=== PATIENT | female | born 1985 | race American Indian/Alaskan Native ===

== ENCOUNTER 2018-03-15 09:52 | Emergency (ER) | payer MEDICAID ==
[2018-03-15 10:02] VITALS: BP 122/79
[2018-03-15] MEDS ORDERED: DUONEB *Not for PRN Use IH ONE (11:14)
[2018-03-15] MEDS ORDERED: DELTASONE PO ONE (11:14)
[2018-03-15] MEDS ORDERED: TESSALON PERLES PO ONE (11:14)
--- NOTE | 2018-03-15 11:20 | Emergency Department Report ---
Chief Complaint: Adult Asthma Stated Complaint: DIFFICULTY BREATHING Time Seen by Provider: 03/15/18 11:13 - HPI History of Present Illness: 32-year-old female presents to the emergency department with a complaint of 2 days of sore throat, and now waking up this morning with wheezing , mixed dry and productive cough, shortness of breath. She has a history of asthma but has not taken any medications prior to presentation. No recent travel or sick contacts at home. - ROS Review of Systems: Positive for wheezing, cough, sore throat, rhinorrhea Negative for chest pain, fever, abdominal pain, back pain. - Exam Vital Signs: Vital Signs 03/15/18 09:56 Temperature 99 F Pulse Rate 94 H Respiratory 18 Rate Blood Pressure 122/79 O2 Sat by Pulse 100 Oximetry Physical Exam: Patient does have moderate inspiratory and expiratory wheezing. There is a productive sounding cough heard during examination. Heart sounds are normal to auscultation. MSE screening note: Focused history and physical exam performed. Due to findings the following was ordered: She was given oral prednisone and a Tessalon Perle. She'll have a DuoNeb. She will have a 2 view chest x-ray and a rapid strep test done. ED Disposition for MSE Condition: Stable Referrals: PRIMARY CARE, [Primary Care Provider] - 3-5 Days
--- NOTE | 2018-03-15 11:49 | XRay Report ---
ROUTINE CHEST, TWO VIEWS: HISTORY: Wheezing. The trachea, heart, mediastinal contour, lung delaney and bony thorax are unremarkable. IMPRESSION: Unremarkable chest x-ray.
--- NOTE | 2018-03-15 12:44 | Emergency Department Report ---
- General Chief Complaint: Adult Asthma Stated Complaint: DIFFICULTY BREATHING Time Seen by Provider: 03/15/18 11:13 Source: patient Mode of arrival: Ambulatory Limitations: No Limitations - History of Present Illness Initial Comments: This is a 32-year-old female nontoxic, well nourished in appearance, no acute signs of distress presents to the ED with c/o of nonproductive cough, sore throat, rhinorrhea, nasal congestion x2 days. Patient also stated has wheezing that started today. Patient denies any sick contact. Patient denies any recent travels, long car, recent hospital stays. Patient denies any calf pain or calf tenderness. Patient denies any chest pain, short of breath, fever, chills, nausea, vomiting, hemoptysis, numbness, tingling, headache or stiff neck. Allergiec includes PCN and Flagyl. PMH includes DM and HTN. MD Complaint: cough, sore throat, rhinorrhea, nasal congestion, other (wheezing) -: days(s) (1) Severity: mild Severity scale (0 -10): 8 Quality: aching Consistency: constant Improves With: nothing Worsens With: nothing Associated Symptoms: rhinorrhea, nasal congestion, sore throat, cough. denies: fever, chills, myalgias, diaphoresis, headache, stiff neck, chest pain, shortness of breath, abdominal pain, nausea, vomiting, diarrhea, dysuria, rash, confusion, right sweats, weight loss, epistaxis, hoarseness, ear pain Treatments Prior to Arrival: none - Related Data Previous Rx's Medication Instructions Recorded Last Taken Type ALBUTEROL Inhaler [ProAir HFA 2 puff IH QID PRN #1 inhalation 03/15/18 Unknown Rx Inhaler] Azithromycin [Zithromax Z-YASMEEN] 250 mg PO DAILY #6 tablet 03/15/18 Unknown Rx Prednisone [predniSONE 10 mg 10 mg PO .TAPER #1 tab.ds.pk 03/15/18 Unknown Rx (6-Day Pack, 21 Tabs)] Allergies Allergy/AdvReac Type Severity Reaction Status Date / Time metronidazole [From Flagyl] Allergy Hives Verified 03/15/18 09:54 orange juice Allergy Swelling Verified 03/15/18 09:55 Penicillins Allergy Hives Verified 03/15/18 09:55 ED Review of Systems ROS: Stated complaint: DIFFICULTY BREATHING Other details as noted in HPI Constitutional: denies: chills, fever Eyes: denies: eye pain, eye discharge, vision change ENT: throat pain. denies: ear pain Respiratory: cough, wheezing. denies: shortness of breath Cardiovascular: denies: chest pain, palpitations Endocrine: no symptoms reported Gastrointestinal: denies: abdominal pain, nausea, diarrhea Genitourinary: denies: urgency, dysuria, discharge Musculoskeletal: denies: back pain, joint swelling, arthralgia Skin: denies: rash, lesions Neurological: denies: headache, weakness, paresthesias Psychiatric: denies: anxiety, depression Hematological/Lymphatic: denies: easy bleeding, easy bruising ED Past Medical Hx - Past Medical History Previous Medical History?: Yes Hx Asthma: Yes - Surgical History Past Surgical History?: No - Social History Smoking Status: Current Every Day Smoker Substance Use Type: None - Medications Home Medications: Home Medications Medication Instructions Recorded Confirmed Last Taken Type ALBUTEROL Inhaler [ProAir HFA 2 puff IH QID PRN #1 inhalation 03/15/18 Unknown Rx Inhaler] Azithromycin [Zithromax Z-YASMEEN] 250 mg PO DAILY #6 tablet 03/15/18 Unknown Rx Prednisone [predniSONE 10 mg 10 mg PO .TAPER #1 tab.ds.pk 03/15/18 Unknown Rx (6-Day Pack, 21 Tabs)] ED Physical Exam - General Limitations: No Limitations General appearance: alert, in no apparent distress - Head Head exam: Present: atraumatic, normocephalic - Eye Eye exam: Present: normal appearance Pupils: Present: normal accommodation - ENT ENT exam: Present: mucous membranes moist, TM's normal bilaterally, normal external ear exam - Expanded ENT Exam Expanded Ear exam: Present: normal external inspection Mouth exam: Present: normal external inspection, tongue normal. Absent: drooling, trismus, muffled voice, tongue elevation, laceration Teeth exam: Present: normal inspection Throat exam: Positive: tonsillar erythema, tonsillomegaly (2+), other (uvula midline. No abscess or swelling noted. ). Negative: tonsillar exudate, R peritonsillar mass, L peritonsillar mass - Neck Neck exam: Present: normal inspection, full ROM, lymphadenopathy (bilateral tonsillar). Absent: tenderness, meningismus - Respiratory Respiratory exam: Present: normal lung sounds bilaterally, wheezes (bilateral upper and lower lobes). Absent: respiratory distress, rales, rhonchi, stridor, chest wall tenderness, accessory muscle use, decreased breath sounds, prolonged expiratory - Cardiovascular Cardiovascular Exam: Present: regular rate, normal rhythm, normal heart sounds. Absent: irregular rhythm, systolic murmur, diastolic murmur, rubs, gallop - GI/Abdominal GI/Abdominal exam: Present: soft, normal bowel sounds - Extremities Exam Extremities exam: Present: normal inspection, full ROM, normal capillary refill - Back Exam Back exam: Present: normal inspection, full ROM - Neurological Exam Neurological exam: Present: alert, oriented X3, normal gait - Psychiatric Psychiatric exam: Present: normal affect, normal mood - Skin Skin exam: Present: warm, dry, intact, normal color. Absent: rash ED Course Vital Signs 03/15/18 09:56 Temperature 99 F Pulse Rate 94 H Respiratory 18 Rate Blood Pressure 122/79 O2 Sat by Pulse 100 Oximetry - Reevaluation(s) Reevaluation #1: 03/15/18 12:43 Patient is speaking in full sentences with no signs of distress noted. - Consultations Consultation #1: 03/15/18 12:46 Patient has been consulted with Dr. Torrez about patient history, physical exam, and xray results and examined and screened patient and agrees to ED plan of care and discharge plan of care. ED Medical Decision Making - Medical Decision Making This is a 32-year-old female that presents with asthma exacerbation, URI, and tonsillitis. Patient is stable and was examined by nm and Dr. Torrez. Chest x- ray has been obtained and dictated by the radiologist within normal limits. Patient is notified of the x-ray report with no questions noted by the patient. Patient did receive DuoNeb and steroids in the ED which patient the symptoms has resolved and subsided. Posttreatment and there is no wheezing upon auscultation. Patient is discharged with albuterol and prednisone and zpak. Patient was referred to Follow-up with a primary care doctor in 3-5 days or if symptoms worsen and continue return to emergency room as soon as possible. At time of discharge, the patient does not seem toxic or ill in appearance. No acute signs of distress noted. Patient agrees to discharge treatment plan of care. No further questions noted by the patient. This chart is dictated with using Dragon Dictation Program Critical care attestation.: If time is entered above; I have spent that time in minutes in the direct care of this critically ill patient, excluding procedure time. ED Disposition Clinical Impression: Tonsillitis Upper respiratory infection Qualifiers: URI type: unspecified URI Qualified Code(s): J06.9 - Acute upper respiratory infection, unspecified Asthma exacerbation Qualifiers: Asthma severity: mild Asthma persistence: intermittent Qualified Code(s): J45.21 - Mild intermittent asthma with (acute) exacerbation Disposition: TO HOME OR SELFCARE Is pt being admited?: No Does the pt Need Aspirin: No Condition: Stable Instructions: Asthma (ED), Tonsillitis (ED), Azithromycin (By mouth), Prednisone (By mouth), Albuterol (By breathing) Additional Instructions: Follow-up with a primary care doctor in 3-5 days or if symptoms worsen and continue return to emergency room as soon as possible. Prescriptions: ALBUTEROL Inhaler [ProAir HFA Inhaler] 2 puff IH QID PRN #1 inhalation PRN Reason: Shortness Of Breath Azithromycin [Zithromax Z-YASMEEN] 250 mg PO DAILY #6 tablet Prednisone [predniSONE 10 mg (6-Day Pack, 21 Tabs)] 10 mg PO .TAPER #1 tab.ds.pk Referrals: PRIMARY CARE, [Primary Care Provider] - 3-5 Days HECTOR RÍOS MD [Staff Physician] - 3-5 Days [facility] [Outside] - 3-5 Days [facility] [Outside] - 3-5 Days Forms: Work/School Release Form(ED)
== END 2018-03-15 13:03 | disposition home or self-care (01) ==
LOC: ED 09:52
DX: J03.90 Acute tonsillitis, unspecified (principal); J06.9 Acute upper respiratory infection, unspecified; J45.21 Mild intermittent asthma with (acute) exacerbation; E11.9 Type 2 diabetes mellitus without complications; I10 Essential (primary) hypertension; F17.200 Nicotine dependence, unspecified, uncomplicated; Z88.0 Allergy status to penicillin; Z91.018 Allergy to other foods
CPT/HCPCS: 71046; 87116; 87430; 94640; 99283; J7512

== ENCOUNTER 2018-06-03 09:20 | Emergency (ER) | payer MEDICAID ==
[2018-06-03] MEDS ORDERED: TESSALON PERLES PO ONE (09:46)
[2018-06-03] MEDS ORDERED: ATROVENT IH ONE (09:46)
[2018-06-03] MEDS ORDERED: PROVENTIL IH ONE (09:46)
[2018-06-03] MEDS ORDERED: DELTASONE PO ONE (09:46)
--- NOTE | 2018-06-03 09:50 | Emergency Department Report ---
ED Shortness of Breath HPI - General Chief Complaint: Dyspnea/Respdistress Stated Complaint: WHEEZING Time Seen by Provider: 06/03/18 09:43 Source: patient Mode of arrival: Ambulatory Limitations: No Limitations - History of Present Illness Initial Comments: 32-year-old female with a past medical history of asthma without previous intubations presents to the hospital complaining of cough productive of clear sputum, sore throat, and wheezing. Symptoms started 3 days ago and have gradually worsened. Patient woke up this morning with chest tightness rated as 6/10 in intensity with associated wheezing that improved with home nebulizer treatment of albuterol and Atrovent. No fever reported by patient complains of green nasal discharge and drainage. - Related Data Previous Rx's Medication Instructions Recorded Last Taken Type ALBUTEROL Inhaler [ProAir HFA 2 puff IH QID PRN #1 inhalation 03/15/18 Unknown Rx Inhaler] Azithromycin [Zithromax Z-YASMEEN] 250 mg PO DAILY #6 tablet 03/15/18 Unknown Rx Azithromycin [Zithromax Z-YASMEEN] 1 dose PO DAILY 5 Days tab 06/03/18 Unknown Rx Benzonatate [Tessalon Perles] 100 mg PO Q8HR PRN #30 capsule 06/03/18 Unknown Rx Prednisone [predniSONE 10 mg 10 mg PO .TAPER #1 tab.ds.pk 06/03/18 Unknown Rx (6-Day Pack, 21 Tabs)] Allergies Allergy/AdvReac Type Severity Reaction Status Date / Time metronidazole [From Flagyl] Allergy Hives Verified 03/15/18 09:54 orange juice Allergy Swelling Verified 03/15/18 09:55 Penicillins Allergy Hives Verified 03/15/18 09:55 ED Review of Systems ROS: Stated complaint: WHEEZING Other details as noted in HPI Comment: All other systems reviewed and negative ED Past Medical Hx - Past Medical History Previous Medical History?: Yes Hx Asthma: Yes - Surgical History Past Surgical History?: No - Social History Smoking Status: Current Every Day Smoker Substance Use Type: None - Medications Home Medications: Home Medications Medication Instructions Recorded Confirmed Last Taken Type ALBUTEROL Inhaler [ProAir HFA 2 puff IH QID PRN #1 inhalation 03/15/18 Unknown Rx Inhaler] Azithromycin [Zithromax Z-YASMEEN] 250 mg PO DAILY #6 tablet 03/15/18 Unknown Rx Azithromycin [Zithromax Z-YASMEEN] 1 dose PO DAILY 5 Days tab 06/03/18 Unknown Rx Benzonatate [Tessalon Perles] 100 mg PO Q8HR PRN #30 capsule 06/03/18 Unknown Rx Prednisone [predniSONE 10 mg 10 mg PO .TAPER #1 tab.ds.pk 06/03/18 Unknown Rx (6-Day Pack, 21 Tabs)] ED Physical Exam - General Limitations: No Limitations - Other Other exam information: General: No limitations, patient is alert in no acute distress Head exam: Atraumatic, normocephalic Eyes exam: Normal appearance ENT: Moist mucous membrane Neck exam: Normal inspection, full range of motion, no meningismus nontender Respiratory exam: Frequent dry cough noted. Mild expiratory wheezing, no tachypnea or accessory muscle use Cardiovascular: Normal rate and rhythm, normal heart sounds Abdomen: Soft, nondistended, and nontender, with normal bowel sounds, no rebound, or guarding Extremity: Full range of motion normal inspection no deformity Back: Normal Inspection, full range of motion, no tenderness Neurologic: Alert, oriented x3, cranial nerves intact, no motor or sensory deficit Psychiatric: normal affect, normal mood Skin: Warm, dry, intact ED Course Vital Signs 06/03/18 06/03/18 06/03/18 09:30 11:12 11:23 Temperature 98.8 F 99.4 F Pulse Rate 97 H 107 H 115 H Respiratory 28 H 20 20 Rate Blood Pressure 116/79 Blood Pressure 98/69 [Left] O2 Sat by Pulse 99 93 100 Oximetry - Reevaluation(s) Reevaluation #1: 06/03/18 11:28 Patient feels better with normal pulse ox. Tachycardia result of Neb treatments. ED Medical Decision Making - Medical Decision Making Asthma with cough/bronchitis Improved with nebs and prednisone in the ED Tessalon Perles for cough Will be prescribed meds or symptoms Outpatient follow-up encouraged - Differential Diagnosis bronchitis, pneumonia, sinusitis, asthma, viral syndrome Critical Care Time: No Critical care attestation.: If time is entered above; I have spent that time in minutes in the direct care of this critically ill patient, excluding procedure time. ED Disposition Clinical Impression: Asthmatic bronchitis Disposition: - TO HOME OR SELFCARE Is pt being admited?: No Does the pt Need Aspirin: No Condition: Stable Instructions: Asthma (ED), Acute Bronchitis (ED) Additional Instructions: Take the medication as prescribed. Follow up with your doctor. Return if symptoms worsen as indicated by your discharge instructions Prescriptions: Azithromycin [Zithromax Z-YASMEEN] 1 dose PO DAILY 5 Days tab Benzonatate [Tessalon Perles] 100 mg PO Q8HR PRN #30 capsule PRN Reason: Cough Prednisone [predniSONE 10 mg (6-Day Pack, 21 Tabs)] 10 mg PO .TAPER #1 tab.ds.pk Referrals: [facility] [Provider Group] - 3-5 Days LEVY YOUNG MD [Staff Physician] - 3-5 Days Time of Disposition: 11:28
[2018-06-03 11:13] VITALS: BP 98/69
== END 2018-06-03 11:38 | disposition home or self-care (01) ==
LOC: ED 09:20
DX: J45.909 Unspecified asthma, uncomplicated (principal); F17.200 Nicotine dependence, unspecified, uncomplicated; Z88.0 Allergy status to penicillin; Z88.8 Allergy status to other drugs, medicaments and biological substances; Z91.018 Allergy to other foods
CPT/HCPCS: 94640; 99283; J7512

== ENCOUNTER 2019-08-02 10:52 | Emergency (ER) | payer SELFPAY ==
--- NOTE | 2019-08-02 11:13 | Emergency Department Report ---
Blank Doc - Documentation Documentation: 33-year-old female that presents with URI symptoms. This initial assessment/diagnostic orders/clinical plan/treatment(s) is/are subject to change based on patient's health status, clinical progression and re- assessment by fellow clinical providers in the ED. Further treatment and workup at subsequent clinical providers discretion. Patient/guardians urged not to elope from the ED as their condition may be serious if not clinically assessed and managed. Initial orders include: 1- Patient sent to [facility] for further evaluation and treatment 2- CXR 3- strep swab
--- NOTE | 2019-08-02 11:44 | XRay Report ---
CHEST 2 VIEWS INDICATION: cough. COMPARISON: None FINDINGS: Support devices: None. Heart: Within normal limits. Lungs/pleura: No acute air space or interstitial disease. No pneumothorax. Additional findings: None. IMPRESSION: No acute findings. Signer Name: Ramon Chaves Jr, MD Signed: 08/02/2019 11:40 AM Workstation Name: [id number]
--- NOTE | 2019-08-02 12:37 | Emergency Department Report ---
- General Chief Complaint: Upper Respiratory Infection Stated Complaint: UPPER RESP/BODY SORE Time Seen by Provider: 08/02/19 11:12 Source: patient Mode of arrival: Ambulatory Limitations: No Limitations - History of Present Illness Initial Comments: 33-year-old female past medical history asthma complaints of 4 days of cough productive of green sputum this morning, chest congestion, sore throat, generalized body aches. MAXIMUM TEMPERATURE of 100.3 yesterday. No sick contacts or recent travel. No shortness of breath reported. No improvement despite [id number] medication - Related Data Previous Rx's Medication Instructions Recorded Last Taken Type ALBUTEROL Inhaler (OR & NICU) 2 puff IH QID PRN #1 inhalation 03/15/18 Unknown Rx [ProAir HFA Inhaler] Azithromycin [Zithromax Z-YASMEEN] 250 mg PO DAILY #6 tablet 03/15/18 Unknown Rx Azithromycin [Zithromax Z-YASMEEN] 1 dose PO DAILY 5 Days tab 06/03/18 Unknown Rx Prednisone [predniSONE 10 mg 10 mg PO .TAPER #1 tab.ds.pk 06/03/18 Unknown Rx (6-Day Pack, 21 Tabs)] Azithromycin [Zithromax Z-YASMEEN] 1 dose PO DAILY 5 Days tab 08/02/19 Unknown Rx Benzocaine/Menthol [Cepacol Sore 1 each MM Q2HR PRN #20 lozenge 08/02/19 Unknown Rx Throat Lozenge] Benzonatate [Tessalon Perles] 100 mg PO Q8HR PRN #30 capsule 08/02/19 Unknown Rx Ibuprofen [Motrin] 600 mg PO Q8H PRN #30 tablet 08/02/19 Unknown Rx Allergies Allergy/AdvReac Type Severity Reaction Status Date / Time metronidazole [From Flagyl] Allergy Hives Verified 03/15/18 09:54 orange juice Allergy Swelling Verified 03/15/18 09:55 Penicillins Allergy Hives Verified 03/15/18 09:55 ED Review of Systems ROS: Stated complaint: UPPER RESP/BODY SORE Other details as noted in HPI Comment: All other systems reviewed and negative ED Past Medical Hx - Past Medical History Previous Medical History?: Yes Hx Asthma: Yes - Surgical History Past Surgical History?: No - Social History Smoking Status: Never Smoker Substance Use Type: None - Medications Home Medications: Home Medications Medication Instructions Recorded Confirmed Last Taken Type ALBUTEROL Inhaler (OR & NICU) 2 puff IH QID PRN #1 inhalation 03/15/18 Unknown Rx [ProAir HFA Inhaler] Azithromycin [Zithromax Z-YASMEEN] 250 mg PO DAILY #6 tablet 03/15/18 Unknown Rx Azithromycin [Zithromax Z-YASMEEN] 1 dose PO DAILY 5 Days tab 06/03/18 Unknown Rx Prednisone [predniSONE 10 mg 10 mg PO .TAPER #1 tab.ds.pk 06/03/18 Unknown Rx (6-Day Pack, 21 Tabs)] Azithromycin [Zithromax Z-YASMEEN] 1 dose PO DAILY 5 Days tab 08/02/19 Unknown Rx Benzocaine/Menthol [Cepacol Sore 1 each MM Q2HR PRN #20 lozenge 08/02/19 Unknown Rx Throat Lozenge] Benzonatate [Tessalon Perles] 100 mg PO Q8HR PRN #30 capsule 08/02/19 Unknown Rx Ibuprofen [Motrin] 600 mg PO Q8H PRN #30 tablet 08/02/19 Unknown Rx ED Physical Exam - General Limitations: No Limitations - Other Other exam information: Gen.: No acute distress Head: Atraumatic Eyes: Normal appearance ENT: Moist mucous membranes him and no exudates, right side of tender lymphadenopathy Neck: Normal appearance, no posterior midline tenderness, no meningismus Chest: Clear to auscultation bilaterally Cardiovascular: Regular rate and rhythm Abdomen: Normal appearance, soft, nontender, no rebound or guarding, normal bowel sounds Back: Normal appearance, nontender Extremity: Full range of motion, normal appearance Neuro: Alert 3, clear speech, no focal motor or sensory deficit Psychiatric: Appropriate Skin: No rash ED Course Vital Signs 08/02/19 10:56 Temperature 99.0 F Pulse Rate 98 H Respiratory 18 Rate Blood Pressure 125/84 O2 Sat by Pulse 100 Oximetry ED Medical Decision Making - Radiology Data Radiology results: report reviewed (chest x-ray no acute findings) - Medical Decision Making Strep and chest x-ray negative URI, will cover with Z-Yasmeen for atypical organisms Symptomatic treatment and follow-up recommended - Differential Diagnosis pharyngitis, viral seizure, URI, pneumonia Critical care attestation.: If time is entered above; I have spent that time in minutes in the direct care of this critically ill patient, excluding procedure time. ED Disposition Clinical Impression: URI (upper respiratory infection), Pharyngitis Disposition: - TO HOME OR SELFCARE Is pt being admited?: No Does the pt Need Aspirin: No Condition: Stable Instructions: Upper Respiratory Infection (ED), Pharyngitis (ED) Additional Instructions: Take the medication as prescribed. Follow-up with your doctor or with the doctor/clinic provided. Return if symptoms worsen as indicated by your discharge instructions. Prescriptions: Benzocaine/Menthol [Cepacol Sore Throat Lozenge] 1 each MM Q2HR PRN #20 lozenge PRN Reason: Sore Throat Ibuprofen [Motrin] 600 mg PO Q8H PRN #30 tablet PRN Reason: Pain Benzonatate [Tessalon Perles] 100 mg PO Q8HR PRN #30 capsule PRN Reason: Cough Azithromycin [Zithromax Z-YASMEEN] 1 dose PO DAILY 5 Days tab Referrals: [facility] [Provider Group] - 3-5 Days CANDACE ESTES MD [Staff Physician] - 3-5 Days Forms: Work/School Release Form(ED) Time of Disposition: 12:38
[2019-08-02 13:12] VITALS: BP 121/81
== END 2019-08-02 13:11 | disposition home or self-care (01) ==
LOC: ED 10:52
DX: J02.9 Acute pharyngitis, unspecified (principal); J06.9 Acute upper respiratory infection, unspecified; Z88.1 Allergy status to other antibiotic agents; Z88.0 Allergy status to penicillin; Z91.018 Allergy to other foods; J45.909 Unspecified asthma, uncomplicated; Z79.899 Other long term (current) drug therapy
CPT/HCPCS: 71046; 87116; 87430

== ENCOUNTER 2020-03-16 09:49 | Emergency (ER) | payer OTHER ==
[2020-03-16] MEDS ORDERED: ASPIRIN 325 MG TAB PO ONE (10:03)
--- NOTE | 2020-03-16 10:42 | XRay Report ---
CHEST 1 VIEW INDICATION: Chest Pain. COMPARISON: 08/02/2019 FINDINGS: Support devices: None. Heart: Normal. Lungs/Pleura: No acute pulmonary or pleural findings. IMPRESSION: 1. No acute findings. Signer Name: Dixon Younger MD Signed: 03/16/2020 10:37 AM Workstation Name: [id number]
[2020-03-16 10:52] LABS: Basophils % (Auto) 0.8 % (0.0-1.8); Eosinophils # (Auto) 0.2 K/mm3 (0.0-0.4); Eosinophils % (Auto) 3.1 % (0.0-4.3); Hematocrit 27.3 % (30.3-42.9); Hemoglobin 8.2 gm/dl (10.1-14.3); Lymphocytes # (Auto) 1.9 K/mm3 (1.2-5.4); Lymphocytes % (Auto) 29.4 % (13.4-35.0); Mean Corpuscular HGB Conc 30 % (30-34); Mean Corpuscular Volume 66 fl (79-97); Monocytes # (Auto) 0.5 K/mm3 (0.0-0.8); Monocytes % (Auto) 7.3 % (0.0-7.3); Platelet Count 283 K/mm3 (140-440); Red Blood Count 4.14 M/mm3 (3.65-5.03); Red Cell Distribution Width 20.5 % (13.2-15.2)
[2020-03-16 11:15] LABS: BUN/Creatinine Ratio 17; Blood Urea Nitrogen 10 mg/dL (7-17); Calcium 9.1 mg/dL (8.4-10.2); Hemolysis Index 4
--- NOTE | 2020-03-16 11:25 | Event Note ---
ED Screening Note ED Screening Note: This initial assessment/diagnostic orders/clinical plan/treatment(s) is/are subject to change based on patients health status, clinical progression and re- assessment by fellow clinical providers in the ED. Further treatment and workup at subsequent clinical providers discretion. Patient/guardian urged not to elope from the ED as their condition may be serious if not clinically assessed and managed. Initial orders include: CC CHEST PAIN WITH PALPITATIONS HGB 8.2 NO HX ANEMIA EATS A LOT OF ICE NO HBG ON FILE HR 120
--- NOTE | 2020-03-16 12:04 | Emergency Department Report ---
ED Chest Pain HPI - General Chief Complaint: Chest Pain Stated Complaint: STRONG CHEST PAIN Time Seen by Provider: 03/16/20 11:18 Source: patient Mode of arrival: Ambulatory Limitations: No Limitations - History of Present Illness Initial Comments: 34-year-old female with no medical history presents to ED with chest pain x2 weeks. Patient states she only experiences this pain at night when she is laying in bed before she goes to sleep. Patient states the pain is feels like a "throbbing" pain that will usually last for 30 minutes. Patient denies any associated nausea or vomiting, shortness of breath, diaphoresis, leg pain or swelling. Patient states during the day while she is at work she will sometimes experience her heart fluttering briefly. Patient denies cough or fever. Patient denies any chest pain at this time. Patient reports symptoms began 2 weeks ago following an argument with her sister. States she has been stressed out about that. MD Complaint: chest pain -: week(s) (2) Onset: during rest Pain Location: left chest Severity: moderate Quality: other ("throbbing") Consistency: intermittent, now resolved Improves With: nothing Worsens With: nothing re: denies: nausea, vomting, diaphoresis, dyspnea Other Symptoms: denies: cough, fever, leg swelling - Related Data Previous Rx's Medication Instructions Recorded Last Taken Type Albuterol INH(or & Nicu Only) 2 puff IH QID PRN #1 inhalation 03/15/18 Unknown Rx [ProAir HFA Inhaler] Azithromycin [Zithromax Z-YASMEEN] 250 mg PO DAILY #6 tablet 03/15/18 Unknown Rx Azithromycin [Zithromax Z-YASMEEN] 1 dose PO DAILY 5 Days tab 06/03/18 Unknown Rx Prednisone [predniSONE 10 mg 10 mg PO .TAPER #1 tab.ds.pk 06/03/18 Unknown Rx (6-Day Pack, 21 Tabs)] Azithromycin [Zithromax Z-YASMEEN] 1 dose PO DAILY 5 Days tab 08/02/19 Unknown Rx Benzocaine/Menthol [Cepacol Sore 1 each MM Q2HR PRN #20 lozenge 08/02/19 Unknown Rx Throat Lozenge] Benzonatate [Tessalon Perles] 100 mg PO Q8HR PRN #30 capsule 08/02/19 Unknown Rx Ibuprofen [Motrin] 600 mg PO Q8H PRN #30 tablet 08/02/19 Unknown Rx Ferrous Sulfate [Ferrous Sulfate 324 mg PO TID #90 tablet. 03/16/20 Unknown Rx 324 MG] Allergies Allergy/AdvReac Type Severity Reaction Status Date / Time metronidazole [From Flagyl] Allergy Hives Verified 03/15/18 09:54 orange juice Allergy Swelling Verified 03/15/18 09:55 Penicillins Allergy Hives Verified 03/15/18 09:55 Heart Score - HEART Score History: Slightly suspicious EKG: Normal Age: < 45 Risk factors: No known risk factors Troponin: < normal limit HEART Score: 0 ED Review of Systems ROS: Stated complaint: STRONG CHEST PAIN Other details as noted in HPI Comment: All other systems reviewed and negative Constitutional: denies: chills, fever Respiratory: denies: cough, shortness of breath Cardiovascular: chest pain, palpitations Genitourinary: abnormal menses (reports heavy and prolonged menstrual periods) Musculoskeletal: other (Denies leg pain or swelling) ED Past Medical Hx - Past Medical History Hx Asthma: Yes - Surgical History Past Surgical History?: No - Social History Smoking Status: Smoker, Current Status Unknown Substance Use Type: Alcohol - Medications Home Medications: Home Medications Medication Instructions Recorded Confirmed Last Taken Type Albuterol INH(or & Nicu Only) 2 puff IH QID PRN #1 inhalation 03/15/18 Unknown Rx [ProAir HFA Inhaler] Azithromycin [Zithromax Z-YASMEEN] 250 mg PO DAILY #6 tablet 03/15/18 Unknown Rx Azithromycin [Zithromax Z-YASMEEN] 1 dose PO DAILY 5 Days tab 06/03/18 Unknown Rx Prednisone [predniSONE 10 mg 10 mg PO .TAPER #1 tab.ds.pk 06/03/18 Unknown Rx (6-Day Pack, 21 Tabs)] Azithromycin [Zithromax Z-YASMEEN] 1 dose PO DAILY 5 Days tab 08/02/19 Unknown Rx Benzocaine/Menthol [Cepacol Sore 1 each MM Q2HR PRN #20 lozenge 08/02/19 Unknown Rx Throat Lozenge] Benzonatate [Tessalon Perles] 100 mg PO Q8HR PRN #30 capsule 08/02/19 Unknown Rx Ibuprofen [Motrin] 600 mg PO Q8H PRN #30 tablet 08/02/19 Unknown Rx Ferrous Sulfate [Ferrous Sulfate 324 mg PO TID #90 tablet. 03/16/20 Unknown Rx 324 MG] ED Physical Exam - General Limitations: No Limitations General appearance: alert, in no apparent distress - Head Head exam: Present: atraumatic, normocephalic - Eye Eye exam: Present: normal appearance, EOMI - ENT ENT exam: Present: mucous membranes moist - Neck Neck exam: Present: normal inspection - Respiratory Respiratory exam: Present: normal lung sounds bilaterally. Absent: respiratory distress - Cardiovascular Cardiovascular Exam: Present: regular rate, normal rhythm - GI/Abdominal GI/Abdominal exam: Present: soft. Absent: distended, tenderness - Extremities Exam Extremities exam: Present: normal inspection. Absent: pedal edema, calf tenderness - Neurological Exam Neurological exam: Present: alert, oriented X3 - Psychiatric Psychiatric exam: Present: normal affect, normal mood - Skin Skin exam: Present: warm, dry, intact, normal color. Absent: rash ED Course Vital Signs 03/16/20 03/16/20 03/16/20 09:57 11:41 11:46 Temperature 99.3 F Pulse Rate 88 64 64 Respiratory 18 12 18 Rate Blood Pressure 133/80 103/69 O2 Sat by Pulse 100 100 Oximetry 03/16/20 03/16/20 03/16/20 11:59 12:00 12:30 Temperature Pulse Rate 66 64 Respiratory 18 13 18 Rate Blood Pressure 104/73 104/73 O2 Sat by Pulse 100 100 Oximetry ED Medical Decision Making - Lab Data Result diagrams: 03/16/20 10:10 03/16/20 10:10 - EKG Data -: EKG Interpreted by Al EKG shows normal: sinus rhythm, axis, intervals, QRS complexes, ST-T waves Rate: normal (rate 77) - EKG Data Interpretation: no acute changes - Radiology Data Radiology results: report reviewed, image reviewed - Medical Decision Making 34 yo F w/ palpitations and chest pain x 2 weeks after getting into an argument with her sister. Labs are unremarkable except for Hb of 8.2. Pt reports having heavy and prolonged menstrual periods. This is likely the cause. Will prescribe iron pills and give f/u info for a body engineer. EKG normal, trop neg ative. CXR normal. Vitals normal. Outpt f/u advised. Return precautions given. - Differential Diagnosis ACS, anxiety, pneumonia, arrythmia Critical care attestation.: If time is entered above; I have spent that time in minutes in the direct care of this critically ill patient, excluding procedure time. ED Disposition Clinical Impression: Chest pain, Anemia Disposition: TO HOME OR SELFCARE Is pt being admited?: No Condition: Stable Instructions: Chest Pain (ED), Iron Rich Diet (ED), Iron Deficiency Anemia (ED), Anxiety (ED) Prescriptions: Ferrous Sulfate [Ferrous Sulfate 324 MG] 324 mg PO TID #90 tablet.dr [facility]errals: [facility] [Primary Care Provider] - 3-5 Days GARTH CRESPO MD [Staff Physician] - 3-5 Days MARLO CABA MD [Staff Physician] - 3-5 Days WASHINGTON MURPHY MD [Staff Physician] - 3-5 Days Time of Disposition: 12:20
[2020-03-16 12:08] VITALS: BP 104/73
== END 2020-03-16 12:35 | disposition home or self-care (01) ==
LOC: ED 09:49
DX: D64.9 Anemia, unspecified (principal); R07.9 Chest pain, unspecified; F17.200 Nicotine dependence, unspecified, uncomplicated; J45.909 Unspecified asthma, uncomplicated; Z88.0 Allergy status to penicillin; Z79.899 Other long term (current) drug therapy; Z91.018 Allergy to other foods
CPT/HCPCS: 36415; 71045; 80048; 84484; 85025; 93005

== ENCOUNTER 2021-03-11 02:09 | Emergency (ER) | payer SELFPAY ==
[2021-03-11 03:08] VITALS: BP 119/81
--- NOTE | 2021-03-11 03:24 | Emergency Department Report ---
ED General Adult HPI - General Chief complaint: Dental/Oral Stated complaint: MOUTH PAIN/JAW SWELLING Source: patient Mode of arrival: Ambulatory Limitations: No Limitations - History of Present Illness Initial comments: Patient is a 35-year-old -Citizen Of [place] female with a history of asthma and chronic tobacco abuse who presents to the ED with complaint of acute onset persistent severe left maxillary painful premolar molar toothache with swollen gums for the last 1 week, worse in the last 2 days. Patient states that she has not been able to sleep because of worsening pain. Patient states that she has been taking [id number] medications with no relief. Patient denies fever, chills, sore throat, dysphagia, dizziness, syncope, headache, chest pain, shortness of breath, traumatic injury or dysphonia and change in vision. MD Complaint: left maxillary premolar and molar toothache; swollen painful maxillary gums -: Sudden, week(s) (1) Location: mouth Radiation: non-radiation Severity scale (0 -10): 7 Quality: aching, sharp Consistency: constant Worsens with: eating Associated Symptoms: denies other symptoms. denies: confusion, chest pain, cough, diaphoresis, fever/chills, headaches, loss of appetite, malaise, nausea/vomiting, rash, seizure, shortness of breath, syncope, weakness Treatments Prior to Arrival: none - Related Data Previous Rx's Medication Instructions Recorded Last Taken Type Albuterol Mdi (or & Nicu Only) 2 puff IH QID PRN #1 inhalation 03/15/18 Unknown Rx [ProAir HFA Inhaler] Azithromycin [Zithromax Z-YASMEEN] 250 mg PO DAILY #6 tablet 03/15/18 Unknown Rx Azithromycin [Zithromax Z-YASMEEN] 1 dose PO DAILY 5 Days tab 06/03/18 Unknown Rx Prednisone [predniSONE 10 mg 10 mg PO .TAPER #1 tab.ds.pk 06/03/18 Unknown Rx (6-Day Pack, 21 Tabs)] Azithromycin [Zithromax Z-YASMEEN] 1 dose PO DAILY 5 Days tab 08/02/19 Unknown Rx Benzocaine/Menthol [Cepacol Sore 1 each MM Q2HR PRN #20 lozenge 08/02/19 Unknown Rx Throat Lozenge] Benzonatate [Tessalon Perles] 100 mg PO Q8HR PRN #30 capsule 08/02/19 Unknown Rx Ferrous Sulfate [Ferrous Sulfate 324 mg PO TID #90 tablet.dr 03/16/20 Unknown Rx 324 MG] Famotidine [Pepcid] 20 mg PO BID 5 Days #10 tablet 06/20/20 Unknown Rx Mag Hydrox/Aluminum Hyd/Simeth 355 ml PO QID PRN #1 oral.susp 06/20/20 Unknown Rx [Maalox Advanced Suspension] Ondansetron [Zofran Odt] 4 mg PO Q8HR PRN #15 tab.rapdis 06/20/20 Unknown Rx Acetaminophen/Codeine [Tylenol 1 - 2 tab PO Q6H PRN #10 tab 03/11/21 Unknown Rx /Codeine # 3 tab] Clindamycin [Clindamycin CAP] 300 mg PO Q8HR #60 capsule 03/11/21 Unknown Rx Ibuprofen [Motrin 600 MG tab] 600 mg PO Q8H PRN #30 tablet 03/11/21 Unknown Rx Allergies Allergy/AdvReac Type Severity Reaction Status Date / Time metronidazole [From Flagyl] Allergy Hives Verified 03/15/18 09:54 orange juice Allergy Swelling Verified 03/15/18 09:55 Penicillins Allergy Hives Verified 03/15/18 09:55 ED Review of Systems ROS: Stated complaint: MOUTH PAIN/JAW SWELLING Other details as noted in HPI Constitutional: denies: chills, fever Eyes: denies: eye pain, eye discharge, vision change ENT: dental pain (Left maxillary premolar molar toothache; swollen painful left maxillary gingiva). denies: ear pain, throat pain Respiratory: denies: cough, shortness of breath, wheezing Cardiovascular: denies: chest pain, palpitations Endocrine: no symptoms reported Gastrointestinal: denies: abdominal pain, nausea, diarrhea Genitourinary: denies: urgency, dysuria, discharge Musculoskeletal: denies: back pain, joint swelling, arthralgia Skin: denies: rash, lesions Neurological: denies: headache, weakness, paresthesias Psychiatric: denies: anxiety, depression Hematological/Lymphatic: denies: easy bleeding, easy bruising ED Past Medical Hx - Past Medical History Previous Medical History?: Yes Hx Asthma: Yes - Surgical History Past Surgical History?: No - Social History Smoking Status: Current Every Day Smoker Substance Use Type: None - Medications Home Medications: Home Medications Medication Instructions Recorded Confirmed Last Taken Type Albuterol Mdi (or & Nicu Only) 2 puff IH QID PRN #1 inhalation 03/15/18 Unknown Rx [ProAir HFA Inhaler] Azithromycin [Zithromax Z-YASMEEN] 250 mg PO DAILY #6 tablet 03/15/18 Unknown Rx Azithromycin [Zithromax Z-YASMEEN] 1 dose PO DAILY 5 Days tab 06/03/18 Unknown Rx Prednisone [predniSONE 10 mg 10 mg PO .TAPER #1 tab.ds.pk 06/03/18 Unknown Rx (6-Day Pack, 21 Tabs)] Azithromycin [Zithromax Z-YASMEEN] 1 dose PO DAILY 5 Days tab 08/02/19 Unknown Rx Benzocaine/Menthol [Cepacol Sore 1 each MM Q2HR PRN #20 lozenge 08/02/19 Unknown Rx Throat Lozenge] Benzonatate [Tessalon Perles] 100 mg PO Q8HR PRN #30 capsule 08/02/19 Unknown Rx Ferrous Sulfate [Ferrous Sulfate 324 mg PO TID #90 tablet.dr 03/16/20 Unknown Rx 324 MG] Famotidine [Pepcid] 20 mg PO BID 5 Days #10 tablet 06/20/20 Unknown Rx Mag Hydrox/Aluminum Hyd/Simeth 355 ml PO QID PRN #1 oral.susp 06/20/20 Unknown Rx [Maalox Advanced Suspension] Ondansetron [Zofran Odt] 4 mg PO Q8HR PRN #15 tab.rapdis 06/20/20 Unknown Rx Acetaminophen/Codeine [Tylenol 1 - 2 tab PO Q6H PRN #10 tab 03/11/21 Unknown Rx /Codeine # 3 tab] Clindamycin [Clindamycin CAP] 300 mg PO Q8HR #60 capsule 03/11/21 Unknown Rx Ibuprofen [Motrin 600 MG tab] 600 mg PO Q8H PRN #30 tablet 03/11/21 Unknown Rx ED Physical Exam - General Limitations: No Limitations General appearance: alert, in no apparent distress - Head Head exam: Present: atraumatic, normocephalic, normal inspection - Eye Eye exam: Present: normal appearance, PERRL, EOMI Pupils: Present: normal accommodation - ENT ENT exam: Present: mucous membranes moist, normal external ear exam, other (Swollen, severely tender left maxillary gingiva; severely tender left maxillary premolar molar teeth) - Neck Neck exam: Present: normal inspection, full ROM - Respiratory Respiratory exam: Present: normal lung sounds bilaterally. Absent: respiratory distress, wheezes, chest wall tenderness, accessory muscle use, decreased breath sounds - Cardiovascular Cardiovascular Exam: Present: regular rate, normal rhythm, normal heart sounds. Absent: systolic murmur, diastolic murmur, rubs, gallop - GI/Abdominal GI/Abdominal exam: Present: soft, normal bowel sounds. Absent: distended, tenderness, guarding, rebound, hyperactive bowel sounds, hypoactive bowel sounds - Extremities Exam Extremities exam: Present: normal inspection, full ROM, normal capillary refill - Back Exam Back exam: Present: normal inspection, full ROM. Absent: tenderness, CVA tenderness (R), CVA tenderness (L), muscle spasm, paraspinal tenderness, vertebral tenderness - Neurological Exam Neurological exam: Present: alert, oriented X3, CN II-XII intact, normal gait, reflexes normal - Psychiatric Psychiatric exam: Present: normal affect, normal mood - Skin Skin exam: Present: warm, dry, intact, normal color. Absent: rash ED Course Vital Signs 03/11/21 02:47 Temperature 98.8 F Pulse Rate 89 Respiratory 18 Rate Blood Pressure 119/81 O2 Sat by Pulse 100 Oximetry ED Medical Decision Making - Medical Decision Making This is a 35-year-old -Citizen Of [place] female with a history of asthma and chronic tobacco abuse who presents to the ED with complaint of acute onset persistent severe left maxillary painful premolar molar toothache with swollen gums for the last 1 week, worse in the last 2 days. Patient states that she has not been able to sleep because of worsening pain. Patient states that she has been taking [id number] medications with no relief. In the ED, patient is alert and oriented x3 and is not in any distress. Patient is hemodynamically stable. Patient the history and physical exam findings, patient symptoms are likely due to dental caries, gingivitis or dental abscess. Patient was therefore discharged home on pain medications and antibiotics and advised to follow-up with her primary care physician or dentist in 5 to 7 days for reevaluation. Patient was advised return to the ED immediately if symptoms get worse. - Differential Diagnosis Dental abscess; dental caries; gingivitis Critical care attestation.: If time is entered above; I have spent that time in minutes in the direct care of this critically ill patient, excluding procedure time. ED Disposition Clinical Impression: Acute gingivitis, Dental abscess, Dental caries Disposition: DC- TO HOME OR SELFCARE Is pt being admited?: No Does the pt Need Aspirin: No Condition: Stable Instructions: Dental Abscess, [id number], Trench Mouth Additional Instructions: Take medication with food, drink plenty fluids and follow-up with your dentist or primary care physician in 7 to 10 days for reevaluation. Return to the ED immediately if symptoms get worse. Prescriptions: Clindamycin [Clindamycin CAP] 300 mg PO Q8HR #60 capsule Ibuprofen [Motrin 600 MG tab] 600 mg PO Q8H PRN #30 tablet PRN Reason: Pain Acetaminophen/Codeine [Tylenol /Codeine # 3 tab] 1 - 2 tab PO Q6H PRN #10 tab PRN Reason: Pain , Severe (7-10) Referrals: [facility] [Outside] - 7-10 days Time of Disposition: 03:22 Print Language: ROMANIAN
== END 2021-03-11 04:00 | disposition home or self-care (01) ==
LOC: ED 02:09
DX: K04.7 Periapical abscess without sinus (principal); K05.00 Acute gingivitis, plaque induced; K02.9 Dental caries, unspecified; J45.909 Unspecified asthma, uncomplicated; F17.200 Nicotine dependence, unspecified, uncomplicated; Z88.0 Allergy status to penicillin; Z91.018 Allergy to other foods; Z79.899 Other long term (current) drug therapy; Z88.8 Allergy status to other drugs, medicaments and biological substances
CPT/HCPCS: 99282

== ENCOUNTER 2021-05-06 13:04 | Emergency (ER) | payer SELFPAY ==
--- NOTE | 2021-05-06 16:21 | Emergency Department Report ---
ED General Adult HPI - General Chief complaint: Dental/Oral Stated complaint: LT NECK SWOLLEN TOOTH PAIN FEVER Time Seen by Provider: 05/06/21 14:58 Source: patient Mode of arrival: Ambulatory Limitations: No Limitations - History of Present Illness Initial comments: 35-year-old -[place] female patient presents with complaints of left lower dental pain x2 days. Patient states she has previously had a dental infection in that area and was treated here 2 months ago for the same. She states she has followed up with a dental specialist and is scheduled on June 02 to have her wisdom tooth removed. Patient reports she broke a piece of her t ooth off and there is swelling to her face and redness to her gums. She rates her pain as a 9/10 in severity states it is not improving with ibuprofen. No fever/chills/sweats or difficulty opening her jaw per patient. - Related Data Previous Rx's Medication Instructions Recorded Last Taken Type Albuterol Mdi (or & Nicu Only) 2 puff IH QID PRN #1 inhalation 03/15/18 Unknown Rx [ProAir HFA Inhaler] Azithromycin [Zithromax Z-YASMEEN] 250 mg PO DAILY #6 tablet 03/15/18 Unknown Rx Azithromycin [Zithromax Z-YASMEEN] 1 dose PO DAILY 5 Days tab 06/03/18 Unknown Rx Prednisone [predniSONE 10 mg 10 mg PO .TAPER #1 tab.ds.pk 06/03/18 Unknown Rx (6-Day Pack, 21 Tabs)] Azithromycin [Zithromax Z-YASMEEN] 1 dose PO DAILY 5 Days tab 08/02/19 Unknown Rx Benzocaine/Menthol [Cepacol Sore 1 each MM Q2HR PRN #20 lozenge 08/02/19 Unknown Rx Throat Lozenge] Benzonatate [Tessalon Perles] 100 mg PO Q8HR PRN #30 capsule 08/02/19 Unknown Rx Ferrous Sulfate [Ferrous Sulfate 324 mg PO TID #90 tablet.dr 03/16/20 Unknown Rx 324 MG] Famotidine [Pepcid] 20 mg PO BID 5 Days #10 tablet 06/20/20 Unknown Rx Mag Hydrox/Aluminum Hyd/Simeth 355 ml PO QID PRN #1 oral.susp 06/20/20 Unknown Rx [Maalox Advanced Suspension] Ondansetron [Zofran Odt] 4 mg PO Q8HR PRN #15 tab.rapdis 06/20/20 Unknown Rx Ibuprofen [Motrin 600 MG tab] 600 mg PO Q8H PRN #30 tablet 03/11/21 Unknown Rx Acetaminophen/Codeine [Tylenol 1 tab PO Q6H PRN #10 tab 05/06/21 Unknown Rx /Codeine # 3 tab] Clindamycin [Clindamycin CAP] 300 mg PO Q8H 10 Days #30 cap 05/06/21 Unknown Rx Allergies Allergy/AdvReac Type Severity Reaction Status Date / Time metronidazole [From Flagyl] Allergy Hives Verified 05/06/21 14:31 orange juice Allergy Swelling Verified 05/06/21 14:31 Penicillins Allergy Hives Verified 05/06/21 14:31 ED Review of Systems ROS: Stated complaint: LT NECK SWOLLEN TOOTH PAIN FEVER Other details as noted in HPI Constitutional: denies: chills, fever, malaise ENT: dental pain. denies: throat pain Respiratory: denies: cough, shortness of breath Cardiovascular: denies: chest pain Skin: denies: change in color Hematological/Lymphatic: swollen glands ED Past Medical Hx - Past Medical History Hx Asthma: Yes - Surgical History Past Surgical History?: No - Social History Smoking Status: Current Every Day Smoker Substance Use Type: None - Medications Home Medications: Home Medications Medication Instructions Recorded Confirmed Last Taken Type Albuterol Mdi (or & Nicu Only) 2 puff IH QID PRN #1 inhalation 03/15/18 Unknown Rx [ProAir HFA Inhaler] Azithromycin [Zithromax Z-YASMEEN] 250 mg PO DAILY #6 tablet 03/15/18 Unknown Rx Azithromycin [Zithromax Z-YASMEEN] 1 dose PO DAILY 5 Days tab 06/03/18 Unknown Rx Prednisone [predniSONE 10 mg 10 mg PO .TAPER #1 tab.ds.pk 06/03/18 Unknown Rx (6-Day Pack, 21 Tabs)] Azithromycin [Zithromax Z-YASMEEN] 1 dose PO DAILY 5 Days tab 08/02/19 Unknown Rx Benzocaine/Menthol [Cepacol Sore 1 each MM Q2HR PRN #20 lozenge 08/02/19 Unknown Rx Throat Lozenge] Benzonatate [Tessalon Perles] 100 mg PO Q8HR PRN #30 capsule 08/02/19 Unknown Rx Ferrous Sulfate [Ferrous Sulfate 324 mg PO TID #90 tablet.dr 03/16/20 Unknown Rx 324 MG] Famotidine [Pepcid] 20 mg PO BID 5 Days #10 tablet 06/20/20 Unknown Rx Mag Hydrox/Aluminum Hyd/Simeth 355 ml PO QID PRN #1 oral.susp 06/20/20 Unknown Rx [Maalox Advanced Suspension] Ondansetron [Zofran Odt] 4 mg PO Q8HR PRN #15 tab.rapdis 06/20/20 Unknown Rx Ibuprofen [Motrin 600 MG tab] 600 mg PO Q8H PRN #30 tablet 03/11/21 Unknown Rx Acetaminophen/Codeine [Tylenol 1 tab PO Q6H PRN #10 tab 05/06/21 Unknown Rx /Codeine # 3 tab] Clindamycin [Clindamycin CAP] 300 mg PO Q8H 10 Days #30 cap 05/06/21 Unknown Rx ED Physical Exam - General Limitations: No Limitations General appearance: alert, in no apparent distress - Head Head exam: Present: atraumatic, normocephalic - Eye Eye exam: Present: normal appearance. Absent: scleral icterus - Expanded ENT Exam Expanded Mouth exam: Absent: drooling, trismus, muffled voice Teeth exam: Present: dental caries 1 - Fractured, Dental Tenderness (Surrounding mild erythema without obvious dental abscess) Throat exam: Positive: normal inspection - Neck Neck exam: Present: lymphadenopathy (Mild single left submandibular lymphadenopathy noted) - Respiratory Respiratory exam: Absent: respiratory distress - Cardiovascular Cardiovascular Exam: Present: regular rate - Neurological Exam Neurological exam: Present: alert, oriented X3, normal gait - Psychiatric Psychiatric exam: Present: normal affect, normal mood - Skin Skin exam: Present: warm, dry, intact, normal color. Absent: rash ED Course Vital Signs 05/06/21 14:34 Temperature 99.0 F Pulse Rate 75 Respiratory 18 Rate Blood Pressure 102/68 O2 Sat by Pulse 100 Oximetry ED Medical Decision Making - Medical Decision Making 35-year-old -[place] female patient presents with complaints of left lower dental pain x2 days. Patient states she has previously had a dental infection in that area and was treated here 2 months ago for the same. She states she has followed up with a dental specialist and is scheduled on June 02 to have her wisdom tooth removed. Patient reports she broke a piece of her tooth off and there is swelling to her face and redness to her gums. She rates her pain as a 9/10 in severity states it is not improving with ibuprofen. No fever/chills/sweats or difficulty opening her jaw per patient. Clindamycin and pain medication given. Patient to follow-up with her dental specialist within a week. Plan discussed with patient and she denies any further questions at this time. Her vitals are normal, she is well-appearing, she is stable for discharge home. Strict return precautions were discussed in detail with patient who verbalized understanding. Critical care attestation.: If time is entered above; I have spent that time in minutes in the direct care of this critically ill patient, excluding procedure time. ED Disposition Clinical Impression: Pain, dental Disposition: DC-01 TO HOME OR SELFCARE Is pt being admited?: No Condition: Stable Instructions: Dental Abscess Additional Instructions: Please follow up with your dental specialist within 1 week Prescriptions: Clindamycin [Clindamycin CAP] 300 mg PO Q8H 10 Days #30 cap Acetaminophen/Codeine [Tylenol /Codeine # 3 tab] 1 tab PO Q6H PRN #10 tab PRN Reason: Pain , Severe (7-10)
== END 2021-05-06 15:00 | disposition home or self-care (01) ==
LOC: ED 13:04
CPT/HCPCS: 99282

== ENCOUNTER 2021-05-08 08:59 | Emergency (ER) | payer SELFPAY ==
[2021-05-08 09:12] VITALS: BP 126/73
--- NOTE | 2021-05-08 09:20 | Emergency Department Report ---
Chief Complaint: Allergic Reaction Stated Complaint: THROAT SWELLING FROM MEDS Time Seen by Provider: 05/08/21 09:16 - HPI History of Present Illness: 35-year-old -[place] female who was seen here 2 days ago for left side of throat and dental abscess and was placed on clindamycin. Patient comes in today feeling that she is having increased swelling of her throat. Patient states she is able to swallow no shortness of breath. Patient states that she she cannot take the Tylenol 3 as it makes her nauseated. Patient reports she has an appointment this evening with her dentist. - Exam Vital Signs: Vital Signs 05/08/21 09:11 Temperature 97.9 F Pulse Rate 71 Respiratory 16 Rate Blood Pressure 126/73 O2 Sat by Pulse 100 Oximetry Physical Exam: Patient is alert and oriented x3 no acute distress nontoxic in appearance HEENT: Oral is patent no tonsillary hypertrophy or true or erythematous, positive lymphadenopathy tonsillary. Left lower gumline swollen. No respiratory distress breathing is effortless able to speak in complete sentences Cardiac regular rate and rhythm Ambulatory without difficulties MSE screening note: Focused history and physical exam performed. Due to findings the following was ordered: 35-year-old -[place] female who was seen here 2 days ago for left side of throat and dental abscess and was placed on clindamycin. Patient comes in today feeling that she is having increased swelling of her throat. Patient states she is able to swallow no shortness of breath. Patient states that she she cannot take the Tylenol 3 as it makes her nauseated. Patient reports she has an appointment this evening with her dentist. Patient states that she will keep her appointment this evening with her dentist. Precautions for given to patient if she she has any worsening symptoms of her throat is closing having difficulty breathing to return back to the emergency room immediately. Directed patient to continue her for antibiotics as prescribed. Keep her appointment with her dentist this evening. Take Tylenol or ibuprofen as needed for dental pain. Patient verbalized understanding. ED Disposition for MSE Disposition: - TO HOME OR SELFCARE Is pt being admited?: No Does the pt Need Aspirin: No Condition: Stable
== END 2021-05-08 15:00 | disposition home or self-care (01) ==
LOC: ED 08:59
DX: K04.7 Periapical abscess without sinus (principal); Z88.0 Allergy status to penicillin; Z88.8 Allergy status to other drugs, medicaments and biological substances
CPT/HCPCS: 99282

== ENCOUNTER 2021-09-12 09:05 | Emergency (ER) | payer SELFPAY ==
[2021-09-12 09:16] VITALS: BP 106/72
--- NOTE | 2021-09-12 09:43 | Emergency Department Report ---
HPI - General Chief Complaint: Upper Respiratory Infection Time Seen by Provider: 09/12/21 09:26 - HPI HPI: 35-year-old -[place] female presents to the emergency department with complaint of a fever, body aches, head congestion, mixed dry and productive cough and sore throat. Overall the symptoms have been going on for about 5 days but she only had a fever on that initial day and it was at 100.4 F. Patient has taken ibuprofen for symptoms with some transient relief. No past medical history. No recent travel. She is not vaccinated against COVID-19 but no known obvious exposure to anyone with COVID-19. The patient's older daughter pre viously had similar symptoms to her but they have since resolved. Her younger daughter is currently being seen here for similar symptoms now. ED Past Medical Hx - Past Medical History Previous Medical History?: Yes Hx Asthma: Yes - Social History Smoking Status: Current Every Day Smoker Substance Use Type: None - Medications Home Medications: Home Medications Medication Instructions Recorded Confirmed Last Taken Type Albuterol Mdi (or & Nicu Only) 2 puff IH QID PRN #1 inhalation 03/15/18 Unknown Rx [ProAir HFA Inhaler] Azithromycin [Zithromax Z-YASMEEN] 250 mg PO DAILY #6 tablet 03/15/18 Unknown Rx Azithromycin [Zithromax Z-YASMEEN] 1 dose PO DAILY 5 Days tab 06/03/18 Unknown Rx Prednisone [predniSONE 10 mg 10 mg PO .TAPER #1 tab.ds.pk 06/03/18 Unknown Rx (6-Day Pack, 21 Tabs)] Azithromycin [Zithromax Z-YASMEEN] 1 dose PO DAILY 5 Days tab 08/02/19 Unknown Rx Benzocaine/Menthol [Cepacol Sore 1 each MM Q2HR PRN #20 lozenge 08/02/19 Unknown Rx Throat Lozenge] Benzonatate [Tessalon Perles] 100 mg PO Q8HR PRN #30 capsule 08/02/19 Unknown Rx Ferrous Sulfate [Ferrous Sulfate 324 mg PO TID #90 tablet.dr 03/16/20 Unknown Rx 324 MG] Famotidine [Pepcid] 20 mg PO BID 5 Days #10 tablet 06/20/20 Unknown Rx Mag Hydrox/Aluminum Hyd/Simeth 355 ml PO QID PRN #1 oral.susp 06/20/20 Unknown Rx [Maalox Advanced Suspension] Ondansetron [Zofran Odt] 4 mg PO Q8HR PRN #15 tab.rapdis 06/20/20 Unknown Rx Ibuprofen [Motrin 600 MG tab] 600 mg PO Q8H PRN #30 tablet 03/11/21 Unknown Rx Acetaminophen/Codeine [Tylenol 1 tab PO Q6H PRN #10 tab 05/06/21 Unknown Rx /Codeine # 3 tab] Clindamycin [Clindamycin CAP] 300 mg PO Q8H 10 Days #30 cap 05/06/21 Unknown Rx ED Review of Systems ROS: Stated complaint: FEVER Other details as noted in HPI Comment: All other systems reviewed and negative Constitutional: chills, fever Eyes: denies: eye pain, vision change ENT: throat pain, congestion. denies: ear pain Respiratory: cough. denies: shortness of breath Cardiovascular: denies: chest pain, palpitations Gastrointestinal: nausea. denies: abdominal pain, vomiting Genitourinary: denies: dysuria, discharge Musculoskeletal: myalgia. denies: joint swelling Skin: denies: rash, lesions Neurological: denies: headache, numbness, paresthesias Physical Exam - Physical Exam Vital Signs: Vital Signs 09/12/21 09:13 Temperature 98.4 F Pulse Rate 73 Respiratory 17 Rate Blood Pressure 106/72 O2 Sat by Pulse 100 Oximetry Physical Exam: GENERAL: The patient is well-developed well-nourished. HENT: Normocephalic. Atraumatic. Patient has moist mucous membranes. Oropharynx is clear without tonsillar hypertrophy, erythema or exudates. No drooling or trismus. EYES: Extraocular motions are intact. NECK: Supple. Trachea is midline. CHEST/LUNGS: Clear to auscultation. No cough heard during examination. No tachypnea or accessory muscle use. HEART/CARDIOVASCULAR: Regular. There is no tachycardia. There is no murmur. ABDOMEN: Abdomen is soft, nontender. Patient has normal bowel sounds. SKIN: Skin is warm and dry. NEURO: The patient is awake, alert, and oriented. The patient is cooperative. The patient has no focal neurologic deficits. Normal speech. MUSCULOSKELETAL: There is no tenderness or deformity. There is no limitation range of motion. ED Course Vital Signs 09/12/21 09:13 Temperature 98.4 F Pulse Rate 73 Respiratory 17 Rate Blood Pressure 106/72 O2 Sat by Pulse 100 Oximetry ED Medical Decision Making - Medical Decision Making This patient presents with a 5-day history of body aches, recent fever, cough, sore throat, and some nausea without vomiting. On examination the patient has normal heart and lung sounds to auscultation. She does not appear in any respiratory or acute distress. No focus of infection seen on physical examination. Chest x-ray does not show any pneumonia, pneumothorax, widened mediastinum, or any other acute process. Vital signs reassuring throughout her ED course including being afebrile and no hypoxia. Overall this appears consistent with a viral syndrome as the patient's older daughter previously had the symptoms and her younger daughter is currently being seen here for similar symptoms. Unfortunately I am unable to test her for COVID-19. We discussed following up with primary care and seeking outpatient COVID-19 testing. She will return to the emergency department with any worsening of her symptoms or with any acute distress. Critical Care Time: No Critical care attestation.: If time is entered above; I have spent that time in minutes in the direct care of this critically ill patient, excluding procedure time. ED Disposition Clinical Impression: Viral syndrome Upper respiratory infection Qualifiers: URI type: unspecified URI Qualified Code(s): J06.9 - Acute upper respiratory infection, unspecified Disposition: 01 HOME / SELF CARE / HOMELESS Is pt being admited?: No Condition: Stable Instructions: Upper Respiratory Infection, Adult, Viral Illness, Adult, Cough, Adult Additional Instructions: Please follow-up with a primary care physician in the next few days. You can take Tylenol every 4-6 hours and ibuprofen every 6-8 hours, using dosing on the back of the bottle, as needed for any fever or discomfort. Unfortunately I am unable to test you for COVID-19. I do recommend outpatient COVID-19 testing. This can be done at some primary care offices, some urgent cares, and there should be a listing of testing facilities through the [place] [facility]. Return to the emergency department with any worsening of your symptoms, new or concerning symptoms not addressed during this current emergency department visit, or with any acute distress. Referrals: [facility] [Other] - 3-[address] [facility] [Provider Group] - 3-5 Days Time of Disposition: 11:16
--- NOTE | 2021-09-12 10:10 | XRay Report ---
CHEST 2 VIEWS INDICATION / CLINICAL INFORMATION: COugh. COMPARISON: March 2020 FINDINGS: SUPPORT DEVICES: None. HEART / MEDIASTINUM: No significant abnormality. LUNGS / PLEURA: No significant pulmonary or pleural abnormality. No pneumothorax. ADDITIONAL FINDINGS: No significant additional findings. IMPRESSION: 1. No acute findings. Signer Name: Samuel Owens MD Signed: 09/12/2021 10:05 AM Workstation Name: [id number]
== END 2021-09-12 11:42 | disposition home or self-care (01) ==
LOC: ED 09:05
DX: B34.9 Viral infection, unspecified (principal); J06.9 Acute upper respiratory infection, unspecified; F17.200 Nicotine dependence, unspecified, uncomplicated; J45.909 Unspecified asthma, uncomplicated
CPT/HCPCS: 71046; 99283

== ENCOUNTER 2022-02-01 19:19 | Emergency (ER) | payer BC ==
--- NOTE | 2022-02-01 21:22 | Emergency Department Report ---
ED Female HPI - General Chief complaint: Abdominal Pain Stated complaint: LOWER ABD PAIN,SHARP PAIN IN LT SIDE/NAUSEA Source: patient Mode of arrival: Ambulatory Limitations: No Limitations - History of Present Illness Initial comments: Patient is a 36-year-old -[place] female with a history of asthma who presents to the ED with complaint of acute onset persistent suprapubic pressure and cramps intermittently, low back pain, intermittent nausea and vomiting, dysuria, urinary frequency and urgency for the last 2 weeks, worse in the last 4 days. Patient states that she has been taking [id number] medications and drinking a lot of water thinking that this would eradicate her symptoms. Patient denies fever, chills, dizziness, syncope, diarrhea, chest pain or shortness of breath, traumatic injury, vaginal bleeding, vaginal discharge, cough, sore throat or headache. MD Complaint: dysuria, pelvic pain (suprapubic pain), other (urinary frequency and urgency; low back pain) -: Sudden, week(s) (2) Location: suprapubic Radiation: non-radiating Severity: severe Severity scale (0 -10): 7 Quality: cramping, dull Consistency: constant Improves with: none Worsens with: urination Are you Now?: No Associated Symptoms: denies other symptoms, abdominal pain (suprapubic pain), nausea/vomiting, dysuria. denies: vaginal discharge, vaginal bleeding, fever/chills, headaches, loss of appetite, hematuria, rash, seizure, shortness of breath, syncope, weakness - Related Data Sexually active: Yes Previous Rx's Medication Instructions Recorded Last Taken Type Albuterol Mdi (or & Nicu Only) 2 puff IH QID PRN #1 inhalation 03/15/18 Unknown Rx [ProAir HFA Inhaler] Azithromycin [Zithromax Z-YASMEEN] 250 mg PO DAILY #6 tablet 03/15/18 Unknown Rx Azithromycin [Zithromax Z-YASMEEN] 1 dose PO DAILY 5 Days tab 06/03/18 Unknown Rx Prednisone [predniSONE 10 mg 10 mg PO .TAPER #1 tab.ds.pk 06/03/18 Unknown Rx (6-Day Pack, 21 Tabs)] Azithromycin [Zithromax Z-YASMEEN] 1 dose PO DAILY 5 Days tab 08/02/19 Unknown Rx Benzocaine/Menthol [Cepacol Sore 1 each MM Q2HR PRN #20 lozenge 08/02/19 Unknown Rx Throat Lozenge] Benzonatate [Tessalon Perles] 100 mg PO Q8HR PRN #30 capsule 08/02/19 Unknown Rx Ferrous Sulfate [Ferrous Sulfate 324 mg PO TID #90 tablet. 03/16/20 Unknown Rx 324 MG] Famotidine [Pepcid] 20 mg PO BID 5 Days #10 tablet 06/20/20 Unknown Rx Mag Hydrox/Aluminum Hyd/Simeth 355 ml PO QID PRN #1 oral.susp 06/20/20 Unknown Rx [Maalox Advanced Suspension] Ondansetron [Zofran Odt] 4 mg PO Q8HR PRN #15 tab.rapdis 06/20/20 Unknown Rx Ibuprofen [Motrin 600 MG tab] 600 mg PO Q8H PRN #30 tablet 03/11/21 Unknown Rx Acetaminophen/Codeine [Tylenol 1 tab PO Q6H PRN #10 tab 05/06/21 Unknown Rx /Codeine # 3 tab] Clindamycin [Clindamycin CAP] 300 mg PO Q8H 10 Days #30 cap 05/06/21 Unknown Rx Naproxen 500 mg PO Q12H PRN #30 tab 02/01/22 Unknown Rx Ondansetron [Zofran Odt] 4 mg PO Q8HR PRN #15 tab.rapdis 02/01/22 Unknown Rx Sulfamethoxazole/Trimethoprim 1 each PO Q12H #20 tab 02/01/22 Unknown Rx [Bactrim DS TAB] Allergies Allergy/AdvReac Type Severity Reaction Status Date / Time metronidazole [From Flagyl] Allergy Hives Verified 05/06/21 14:31 orange juice Allergy Swelling Verified 05/06/21 14:31 Penicillins Allergy Hives Verified 05/06/21 14:31 ED Review of Systems ROS: Stated complaint: LOWER ABD PAIN,SHARP PAIN IN LT SIDE/NAUSEA Other details as noted in HPI Constitutional: denies: chills, fever Eyes: denies: eye pain, eye discharge, vision change ENT: denies: ear pain, throat pain Respiratory: denies: cough, shortness of breath, wheezing Cardiovascular: denies: chest pain, palpitations Endocrine: no symptoms reported Gastrointestinal: abdominal pain (Suprapubic cramping), nausea, vomiting. denies: diarrhea Genitourinary: urgency, dysuria, frequency. denies: discharge Musculoskeletal: back pain (Low back pain). denies: joint swelling, arthralgia Skin: denies: rash, lesions Neurological: denies: headache, weakness, paresthesias Psychiatric: denies: anxiety, depression Hematological/Lymphatic: denies: easy bleeding, easy bruising ED Past Medical Hx - Past Medical History Hx Asthma: Yes - Social History Smoking Status: Current Every Day Smoker Substance Use Type: Alcohol, Marijuana - Medications Home Medications: Home Medications Medication Instructions Recorded Confirmed Last Taken Type Albuterol Mdi (or & Nicu Only) 2 puff IH QID PRN #1 inhalation 03/15/18 Unknown Rx [ProAir HFA Inhaler] Azithromycin [Zithromax Z-YASMEEN] 250 mg PO DAILY #6 tablet 03/15/18 Unknown Rx Azithromycin [Zithromax Z-YASMEEN] 1 dose PO DAILY 5 Days tab 06/03/18 Unknown Rx Prednisone [predniSONE 10 mg 10 mg PO .TAPER #1 tab.ds.pk 06/03/18 Unknown Rx (6-Day Pack, 21 Tabs)] Azithromycin [Zithromax Z-YASMEEN] 1 dose PO DAILY 5 Days tab 08/02/19 Unknown Rx Benzocaine/Menthol [Cepacol Sore 1 each MM Q2HR PRN #20 lozenge 08/02/19 Unknown Rx Throat Lozenge] Benzonatate [Tessalon Perles] 100 mg PO Q8HR PRN #30 capsule 08/02/19 Unknown Rx Ferrous Sulfate [Ferrous Sulfate 324 mg PO TID #90 tablet.dr 03/16/20 Unknown Rx 324 MG] Famotidine [Pepcid] 20 mg PO BID 5 Days #10 tablet 06/20/20 Unknown Rx Mag Hydrox/Aluminum Hyd/Simeth 355 ml PO QID PRN #1 oral.susp 06/20/20 Unknown Rx [Maalox Advanced Suspension] Ondansetron [Zofran Odt] 4 mg PO Q8HR PRN #15 tab.rapdis 06/20/20 Unknown Rx Ibuprofen [Motrin 600 MG tab] 600 mg PO Q8H PRN #30 tablet 03/11/21 Unknown Rx Acetaminophen/Codeine [Tylenol 1 tab PO Q6H PRN #10 tab 05/06/21 Unknown Rx /Codeine # 3 tab] Clindamycin [Clindamycin CAP] 300 mg PO Q8H 10 Days #30 cap 05/06/21 Unknown Rx Naproxen 500 mg PO Q12H PRN #30 tab 02/01/22 Unknown Rx Ondansetron [Zofran Odt] 4 mg PO Q8HR PRN #15 tab.rapdis 02/01/22 Unknown Rx Sulfamethoxazole/Trimethoprim 1 each PO Q12H #20 tab 02/01/22 Unknown Rx [Bactrim DS TAB] ED Physical Exam - General Limitations: No Limitations General appearance: alert, in no apparent distress - Head Head exam: Present: atraumatic, normocephalic, normal inspection - Eye Eye exam: Present: normal appearance, PERRL, EOMI Pupils: Present: normal accommodation - ENT ENT exam: Present: normal exam, normal orophraynx, mucous membranes moist, TM's normal bilaterally, normal external ear exam - Neck Neck exam: Present: normal inspection, full ROM. Absent: tenderness - Respiratory Respiratory exam: Present: normal lung sounds bilaterally. Absent: respiratory distress, wheezes, rales, rhonchi, chest wall tenderness, accessory muscle use, decreased breath sounds, prolonged expiratory - Cardiovascular Cardiovascular Exam: Present: regular rate, normal rhythm, normal heart sounds. Absent: systolic murmur, diastolic murmur, rubs, gallop - GI/Abdominal GI/Abdominal exam: Present: soft, normal bowel sounds. Absent: tenderness, guarding, rebound, hyperactive bowel sounds, hypoactive bowel sounds, organomegaly - Bi-manual exam: Present: other (Pelvic exam deferred at this time) - Extremities Exam Extremities exam: Present: normal inspection, full ROM, normal capillary refill. Absent: tenderness - Back Exam Back exam: Present: normal inspection, full ROM. Absent: tenderness, CVA tenderness (R), CVA tenderness (L), muscle spasm, paraspinal tenderness, vertebral tenderness - Neurological Exam Neurological exam: Present: alert, oriented X3, CN II-XII intact, normal gait, reflexes normal - Psychiatric Psychiatric exam: Present: normal affect, normal mood - Skin Skin exam: Present: warm, dry, intact, normal color. Absent: rash ED Course Vital Signs 02/01/22 21:05 Temperature 99.1 F Pulse Rate 71 Respiratory 16 Rate Blood Pressure 86/44 O2 Sat by Pulse 100 Oximetry ED Medical Decision Making - Medical Decision Making This is a 36-year-old -[place] female with a history of asthma who presents to the ED with complaint of acute onset persistent suprapubic pressure and cramps intermittently, low back pain, intermittent nausea and vomiting, dysuria, urinary frequency and urgency for the last 2 weeks, worse in the last 4 days. Patient states that she has been taking [id number] medications and drinking a lot of water thinking that this would eradicate her symptoms. In the ED, patient is alert and oriented x3 and is not in any distress. Urinalysis showed significant urinary tract infection. Patient will discharge home on medications including antibiotics, pain medications and antiemetics and advised to follow-up with her primary care physician in 7 to 10 days for reevaluation or return to the ED immediately if symptoms get worse. - Differential Diagnosis UTI; muscle spasm; muscle strain; Critical care attestation.: If time is entered above; I have spent that time in minutes in the direct care of this critically ill patient, excluding procedure time. ED Disposition Clinical Impression: Acute urinary tract infection, Acute suprapubic pain Disposition: HOME / SELF CARE / HOMELESS Is pt being admited?: No Does the pt Need Aspirin: No Condition: Stable Instructions: Abdominal Pain (ED), Pelvic Pain, Female, [id number], Abdominal Pain, Adult, [id number], Urinary Tract Infection, Adult, [id number] Additional Instructions: Urinalysis showed significant urinary tract infection. Therefore take medications with food, drink plenty of fluids and follow-up with your primary care physician in 7 to 10 days for reevaluation. Return to the ED immediately if symptoms get worse. Prescriptions: Sulfamethoxazole/Trimethoprim [Bactrim DS TAB] 1 each PO Q12H #20 tab Naproxen 500 mg PO Q12H PRN #30 tab PRN Reason: Pain , Severe (7-10) Ondansetron [Zofran Odt] 4 mg PO Q8HR PRN #15 tab.rapdis PRN Reason: Nausea Referrals: [facility] [Provider Group] - 3-5 Days Time of Disposition: 22:01 Print Language: LIBYAN
[2022-02-01 21:40] LABS: Amorphous Crystals,Urine 1+; Bacteria,Urine 2+ /HPF (Negative); Bilirubin,Urine NEG (Negative); Blood,Urine NEG (Negative); Color,Urine Yellow (Yellow); Mucus,Urine FEW /HPF; Protein,Urine <15 mg/dL mg/dL (Negative); Urobilinogen,Urine < 2.0 mg/dL (<2.0)
[2022-02-01 21:54] LABS: HCG Qualitative,Urine Negative (Negative)
[2022-02-01 22:24] VITALS: BP 111/69
== END 2022-02-01 22:24 | disposition home or self-care (01) ==
LOC: ED 19:19
DX: N39.0 Urinary tract infection, site not specified (principal); J45.909 Unspecified asthma, uncomplicated; F17.200 Nicotine dependence, unspecified, uncomplicated; F12.90 Cannabis use, unspecified, uncomplicated; Z72.89 Other problems related to lifestyle; Z88.0 Allergy status to penicillin; Z91.018 Allergy to other foods; Z88.8 Allergy status to other drugs, medicaments and biological substances; Z79.899 Other long term (current) drug therapy
CPT/HCPCS: 81001; 81025; 87086; 99283

== ENCOUNTER 2022-03-04 19:31 | Emergency (ER) | payer BC ==
--- NOTE | 2022-03-05 07:35 | Emergency Department Report ---
ED Female HPI - General Chief complaint: Fever Stated complaint: LEFT GROIN PAIN/FEVER Time Seen by Provider: 03/05/22 07:22 Source: patient Mode of arrival: Ambulatory Limitations: No Limitations - History of Present Illness Initial comments: 36-year-old female presents to the ER today with complaints of "knot" in her right groin area. She states that she noticed it about 1 week ago. She described as a painful knot and she has been having associated dysuria and a white thick vaginal discharge. She does admit that she has had a new sexual partner in the past 4 months. She does not use condoms consistently. She states that she was diagnosed with a UTI back in January and was treated with Bactrim and she has completed a course of Bactrim. She does admit that her partner informed her about 3 or 4 weeks ago that he had a STD and he took the treatment. She states that after finding out that he was positive for an STD, that she went and saw her doctor who tested her for STD and she was negative for STDs. MD Complaint: dysuria, other ("knot" in right groin) -: week(s) (1) - Related Data Previous Rx's Medication Instructions Recorded Last Taken Type Albuterol Mdi (or & Nicu Only) 2 puff IH QID PRN #1 inhalation 03/15/18 Unknown Rx [ProAir HFA Inhaler] Azithromycin [Zithromax Z-YASMEEN] 250 mg PO DAILY #6 tablet 03/15/18 Unknown Rx Azithromycin [Zithromax Z-YASMEEN] 1 dose PO DAILY 5 Days tab 06/03/18 Unknown Rx Azithromycin [Zithromax Z-YASMEEN] 1 dose PO DAILY 5 Days tab 08/02/19 Unknown Rx Ferrous Sulfate [Ferrous Sulfate 324 mg PO TID #90 tablet.dr 03/16/20 Unknown Rx 324 MG] Famotidine [Pepcid] 20 mg PO BID 5 Days #10 tablet 06/20/20 Unknown Rx Mag Hydrox/Aluminum Hyd/Simeth 355 ml PO QID PRN #1 oral.susp 06/20/20 Unknown Rx [Maalox Advanced Suspension] Ondansetron [Zofran Odt] 4 mg PO Q8HR PRN #15 tab.rapdis 06/20/20 Unknown Rx Acetaminophen/Codeine [Tylenol 1 tab PO Q6H PRN #10 tab 05/06/21 Unknown Rx /Codeine # 3 tab] Naproxen 500 mg PO Q12H PRN #30 tab 02/01/22 Unknown Rx Ondansetron [Zofran Odt] 4 mg PO Q8HR PRN #15 tab.rapdis 02/01/22 Unknown Rx Clindamycin 2% [Clindamycin 2% VAG 1 applicatio VG QHS 7 Days #1 tube 03/05/22 Unknown Rx CREAM] Doxycycline Monohydrate 100 mg PO BID #14 tab 03/05/22 Unknown Rx Ibuprofen [Motrin 600 MG tab] 600 mg PO Q8H PRN #30 tablet 03/05/22 Unknown Rx Allergies Allergy/AdvReac Type Severity Reaction Status Date / Time metronidazole [From Flagyl] Allergy Hives Verified 05/06/21 14:31 orange juice Allergy Swelling Verified 05/06/21 14:31 Penicillins Allergy Hives Verified 05/06/21 14:31 ED Review of Systems ROS: Stated complaint: LEFT GROIN PAIN/FEVER Other details as noted in HPI Comment: All other systems reviewed and negative Gastrointestinal: denies: abdominal pain, nausea, vomiting, diarrhea, constipation, hematemesis, melena, hematochezia Genitourinary: dysuria, discharge, other (+vaginal irritation) Musculoskeletal: denies: back pain, joint swelling, arthralgia Skin: denies: rash, lesions Neurological: denies: headache, weakness, paresthesias ED Past Medical Hx - Past Medical History Hx Asthma: Yes - Social History Smoking Status: Current Every Day Smoker Substance Use Type: Alcohol, Marijuana - Medications Home Medications: Home Medications Medication Instructions Recorded Confirmed Last Taken Type Albuterol Mdi (or & Nicu Only) 2 puff IH QID PRN #1 inhalation 03/15/18 Unknown Rx [ProAir HFA Inhaler] Azithromycin [Zithromax Z-YASMEEN] 250 mg PO DAILY #6 tablet 03/15/18 Unknown Rx Azithromycin [Zithromax Z-YASMEEN] 1 dose PO DAILY 5 Days tab 06/03/18 Unknown Rx Azithromycin [Zithromax Z-YASMEEN] 1 dose PO DAILY 5 Days tab 08/02/19 Unknown Rx Ferrous Sulfate [Ferrous Sulfate 324 mg PO TID #90 tablet. 03/16/20 Unknown Rx 324 MG] Famotidine [Pepcid] 20 mg PO BID 5 Days #10 tablet 06/20/20 Unknown Rx Mag Hydrox/Aluminum Hyd/Simeth 355 ml PO QID PRN #1 oral.susp 06/20/20 Unknown Rx [Maalox Advanced Suspension] Ondansetron [Zofran Odt] 4 mg PO Q8HR PRN #15 tab.rapdis 06/20/20 Unknown Rx Acetaminophen/Codeine [Tylenol 1 tab PO Q6H PRN #10 tab 05/06/21 Unknown Rx /Codeine # 3 tab] Naproxen 500 mg PO Q12H PRN #30 tab 02/01/22 Unknown Rx Ondansetron [Zofran Odt] 4 mg PO Q8HR PRN #15 tab.rapdis 02/01/22 Unknown Rx Clindamycin 2% [Clindamycin 2% VAG 1 applicatio VG QHS 7 Days #1 tube 03/05/22 Unknown Rx CREAM] Doxycycline Monohydrate 100 mg PO BID #14 tab 03/05/22 Unknown Rx Ibuprofen [Motrin 600 MG tab] 600 mg PO Q8H PRN #30 tablet 03/05/22 Unknown Rx ED Physical Exam - General Limitations: No Limitations General appearance: alert, in no apparent distress - Respiratory Respiratory exam: Absent: respiratory distress - Cardiovascular Cardiovascular Exam: Present: regular rate - GI/Abdominal GI/Abdominal exam: Present: soft. Absent: distended, tenderness, guarding, rebound - External exam: Present: other (Small right inguinal lymph node noted. It is tender to palpate. No overlying erythema. No fluctuance or induration.). Absent: erythema, swelling, lesions, lacerations, ecchymosis, bleeding Speculum exam: Present: vaginal discharge (Moderate amount of white discharge). Absent: vaginal bleeding, foreign body, tissue, laceration Bi-manual exam: Present: adnexal tenderness (Mild right), other (Hydraulic Lift Operator present during exam.). Absent: cervical motion tendernes, adnexal mass - Neurological Exam Neurological exam: Present: alert, oriented X3, CN II-XII intact, normal gait - Psychiatric Psychiatric exam: Present: normal affect, normal mood - Skin Skin exam: Present: intact ED Course Vital Signs 03/04/22 03/05/22 20:44 08:16 Temperature 99.7 F H Pulse Rate 61 Respiratory 16 16 Rate Blood Pressure 120/92 [Left] O2 Sat by Pulse 100 Oximetry ED Medical Decision Making - Lab Data Laboratory Results - last 24 hr 03/05/22 Unknown Urine Color Brisa Urine Turbidity Clear Urine pH 5.0 Ur Specific [place] 1.019 Urine Protein 30 mg/dl Urine Glucose (UA) Neg Urine Ketones Tr Urine Blood Neg Urine Nitrite Neg Urine Bilirubin Neg Urine Urobilinogen 2.0 Ur Leukocyte Esterase Lg Urine WBC (Auto) < 1.0 Urine RBC (Auto) < 1.0 Urine HCG, Qual Negative - Medical Decision Making hCG is negative. Urinalysis shows large leukocytes, but less than 1 WBCs and no bacteria. Wet prep is positive for BV but negative for yeast or trichomonas. Urine GC is pending. Patient was treated prophylactically with Rocephin and she will be given doxycycline for gonorrhea and chlamydia. She will be given clindamycin gel for her BV. Discussed all test results and treatment plan with patient. Patient expressed understanding agree with plan. Patient stable at time of discharge. Critical care attestation.: If time is entered above; I have spent that time in minutes in the direct care of this critically ill patient, excluding procedure time. ED Disposition Clinical Impression: Bacterial vaginosis, Reactive lymphadenopathy Disposition: HOME / SELF CARE / HOMELESS Is pt being admited?: No Does the pt Need Aspirin: No Condition: Stable Instructions: Bacterial Vaginosis, Lymphadenopathy, Bacterial Vaginosis (ED) Additional Instructions: I recommend taking the doxycycline and using the metronid Prescriptions: Clindamycin 2% [Clindamycin 2% VAG CREAM] 1 applicatio VG QHS 7 Days #1 tube Doxycycline Monohydrate 100 mg PO BID #14 tab Ibuprofen [Motrin 600 MG tab] 600 mg PO Q8H PRN #30 tablet PRN Reason: Pain Referrals: GARTH CRESPO MD [Primary Care Provider] - 3-5 Days Forms: STI Treatment and Prevention Time of Disposition: 09:10
[2022-03-05 07:41] LABS: Bilirubin,Urine NEG (Negative); Blood,Urine NEG (Negative); Color,Urine Amber (Yellow)
[2022-03-05 07:47] LABS: RBC,Urine < 1.0 /HPF (0.0-6.0)
[2022-03-05 07:48] LABS: HCG Qualitative,Urine Negative (Negative); WBC,Urine < 1.0 /HPF (0.0-6.0)
[2022-03-05] MEDS ORDERED: IBUPROFEN 600 MG TAB PO ONE (07:53)
[2022-03-05] MEDS ORDERED: LIDOCAINE-MPF (1%) 10 MG/1 ML VIAL 5 ML INFILTRATI ONE (07:53)
[2022-03-05 10:05] VITALS: BP 124/80
== END 2022-03-05 10:05 | disposition home or self-care (01) ==
LOC: ED 19:31
DX: N76.0 Acute vaginitis (principal); B96.89 Other specified bacterial agents as the cause of diseases classified elsewhere; R59.1 Generalized enlarged lymph nodes; J45.909 Unspecified asthma, uncomplicated; Z88.0 Allergy status to penicillin; Z91.02 Food additives allergy status; Z79.899 Other long term (current) drug therapy; F17.200 Nicotine dependence, unspecified, uncomplicated
CPT/HCPCS: 81001; 81025; 87210; 87591; 96372; 99284; J0696; J3490; 99283